=== PATIENT | male | born 1975 | race Asian ===

== ENCOUNTER 2019-08-21 06:20 | Emergency (ER) | payer OTHER ==
[~2019-08-21] VITALS: Ht 172.7 cm; Wt 72.6 kg
[2019-08-21 06:30] VITALS: TEMP 98.6
[2019-08-21 06:59] LABS: PLATELET COUNT 266 K/uL (142-355)
[2019-08-21 09:57] VITALS: BP 118/74
== END 2019-08-21 09:57 | disposition home or self-care (01) ==
LOC: ED 06:20
PROVIDERS: Family Medicine
DX: M60.9 Myositis, unspecified (principal); M54.5 Low back pain; S39.012A Strain of muscle, fascia and tendon of lower back, initial encounter; M62.830 Muscle spasm of back
CPT/HCPCS: 80053; 81000; 82150; 83690; 85027; 96374; 96375; 99283; 99284; J1885; J2405

== ENCOUNTER 2020-04-27 16:10 | Emergency (ER) | payer OTHER ==
[~2020-04-27] VITALS: Ht 172.7 cm; Wt 72.6 kg
[2020-04-27 16:15] VITALS: BP 119/84; TEMP 98.5
== END 2020-04-27 17:32 | disposition home or self-care (01) ==
LOC: ED 16:10
DX: M54.5 Low back pain (principal); M62.830 Muscle spasm of back
CPT/HCPCS: 96372; 99282; J1885

== ENCOUNTER 2021-07-08 14:46 | Emergency (ER) | payer OTHER ==
[~2021-07-08] VITALS: Ht 172.7 cm; Wt 72.6 kg
[2021-07-08 15:31] VITALS: BP 113/69; TEMP 100.4
== END 2021-07-08 15:32 | disposition home or self-care (01) ==
LOC: ED 14:46
DX: U07.1 COVID-19 (principal)
CPT/HCPCS: 87635; 99283; U0003